=== PATIENT | male | born 1980 | race Caucasian/White ===

== ENCOUNTER 2025-08-11 15:17 | Emergency (ER) | payer BC, OTHER, SELFPAY ==
[2025-08-11 16:10] VITALS: BP 176/117; PULSE 88; RESP 14; O2SAT 98
--- NOTE | 2025-08-11 16:19 | ED.GENADULT ---
HPI - General Adult General Chief complaint: Skin/Abscess/Foreign Body Stated complaint: infection to right breast Time Seen by Provider: 08/11/25 16:20 Source: patient Mode of arrival: ambulatory Limitations: no limitations History of Present Illness HPI narrative: 45 years old white male drove himself to the emergency room with abscess like lesion at the right breast started 4 days ago, started probably as a pimple, ingrowing hair, squeezed, produced pus, then redness and tenderness spread. Patient denies any fever or chills, last time had blood workup years ago. He denies taking any medicine at home this time. Related Data Allergies Allergy/AdvReac Type Severity Reaction Status Date / Time No Known Allergies Allergy Verified 08/11/25 15:20 Review of Systems Review of Systems: All systems reviewed & are unremarkable except as noted in HPI and below Exam Narrative: General appearance: Well-developed, well-nourished Skin: Normal color, right breast showing extensive erythema 15 X 15 CM, warm to touch, severely tender, subcutaneous fluctuation 6 x 6 cm, NO DISCHARGE Head: Normocephalic, nontraumatic Eyes: Clear conjunctiva ENT: Oropharynx normal, ears normal, nose normal Neck: Supple, nontender Chest and respiratory: Airway patent, no respiratory distress, no accessory muscle use Heart: Regular rate/rhythm Abdomen: Soft, nontender, no organomegaly, quiet bowel sounds Musculoskeletal: Normal range of motion, nontender back Neurologic: Alert and oriented ?3, [employer] INS[employer]OR is normal as tested, no gross motor deficit Course Consultations Consultation #1: DR LEMONS ADMIT TO HOSPITALIST Date: 08/11/25 Time: 18:00 Vital Signs Vital signs: Vital Signs Pulse Rate 88 08/11/25 16:10 Respiratory Rate 14 08/11/25 16:10 Blood Pressure 176/117 H 08/11/25 16:10 Pulse Oximetry 98 08/11/25 16:10 Pulse Rate 88 08/11/25 16:10 Respiratory Rate 14 08/11/25 16:10 Blood Pressure 176/117 H 08/11/25 16:10 Pulse Oximetry 98 08/11/25 16:10 Medical Decision Making [facility] Narrative Medical decision making narrative: PATIENT CAME WITH ABSCESS LIKE LESION AT THE RIGHT BREAST VITAL SIGNS SHOWING BLOOD PRESSURE 176/117 OTHERWISE WITHIN NORMAL LIMIT PHYSICAL EXAMINATION SHOWING ABSCESS RIGHT BREAST 6 X 6 CM SURROUNDED BY ERYTHEMA 15 X 15 CM, DIFFUSELY TENDER, NO DISCHARGE. DIFFERENTIAL DIAGNOSIS RIGHT BREAST ABSCESS, POSSIBLE RIGHT BREAST CANCER WITH SUPERIMPOSED INFECTION. BLOOD WORKUP TODAY INCLUDES CBC CMP SHOWED NO SIGNIFICANT ABNORMALITY DR. LEMONS ACCEPTED PATIENT ADMISSION FOR INCISION AND DRAINAGE AND POSSIBLE BIOPSY TOMORROW MORNING. PATIENT DECLINED AND SIGNED AGAINST MEDICAL ADVICE I DECLARE THAT I HAVE PERSONALLY EXPLAINED TO THE PATIENT THE RISKS AND CONSEQUENCES INVOLVED IN LEAVING THIS FACILITY AT THIS TIME. THE BENEFITS OF CONTINUED TREATMENT AND/OR HOSPITALIZATION. AND THE ALTERNATIVES. IF ANY. TO CONTINUED TREATMENT AND/OR HOSPITALIZATION. IF APPLICABLE.I HAVE NOT IDENTIFIED ANY PSYCHOSIS, DRUGS, MENTAL ILLNESS, OR MEDICAL ILLNESS THAT ALTERS DECISION-MAKING CAPACITY (REASONING ABILITIES ). Differential Diagnosis Differential Diagnosis: ABOVE Vital Signs Vital Signs: Vital Signs Pulse Rate 88 08/11/25 16:10 Respiratory Rate 14 08/11/25 16:10 Blood Pressure 176/117 H 08/11/25 16:10 Pulse Oximetry 98 08/11/25 16:10 Pulse Rate 88 08/11/25 16:10 Respiratory Rate 14 08/11/25 16:10 Blood Pressure 176/117 H 08/11/25 16:10 Pulse Oximetry 98 08/11/25 16:10 Lab Data 08/11/25 17:13 08/11/25 17:13 Labs: Lab Results 08/11/25 Range/Units 17:13 WBC 9.4 (4.5-10.0) K/mm3 RBC 4.54 L (4.6-6.20) M/mm3 Hgb 13.0 L (14.0-18.0) g/dL Hct 40.2 L (42.0-52.0) % MCV 88.5 (80-100) fl MCH 28.6 (26-34) pg MCHC 32.3 (32-36) g/dl RDW 14.6 H (11.5-14.5) % Plt Count 221 (150-375) k/mm3 MPV 10.1 (7.4-10.4) fl Immature Gran % (Auto) 0.2 (0-0.5) % Neut % (Auto) 61.8 (45.5-73.1) % Lymph % (Auto) 25.9 (18.3-44.2) % Jackson % (Auto) 9.4 H (2.6-8.5) % Eos % (Auto) 2.5 (0-4.4) % Baso % (Auto) 0.2 (0.2-1.2) % Lymph # (Auto) 2.42 (0.9-3.2) K/mm3 Jackson # (Auto) 0.9 H (0.1-0.6) K/mm3 Eos # (Auto) 0.2 (0-0.3) K/mm3 Baso # (Auto) 0.0 (0.0-0.1) K/mm3 Abs Immat Gran (auto) 0.02 (0.00-0.031) K/mm3 Absolute Neuts (auto) 5.8 (1.3-6.7) K/mm3 Absolute Nucleated RBC 0.000 (0.0-0.012) K/mm3 Nucleated RBC % 0.0 (0.0-0.2) % Sodium 136 L (137-145) mmol/L Potassium 3.9 (3.4-5.0) mmol/L Chloride 103 (98-107) mmol/L Carbon Dioxide 27 (22-30) mmol/L Anion Gap 6 (4-12) mmol/L BUN 11 (9-20) mg/dL Creatinine 0.92 (0.7-1.3) mg/dL Estim Creat Clear Calc 88 ml/min Estimated GFR > 60 (59 - ) Glucose 92 (65-110) mg/dL Calcium 8.9 (8.4-10.2) mg/dL Total Bilirubin 0.4 (0.2-1.3) mg/dL AST 22 (17-59) U/L ALT 18 (6-50) U/L Alkaline Phosphatase 93 (38-126) U/L Total Protein 7.9 (6.3-8.2) g/dL Albumin 3.9 (3.5-5.1) g/dL Critical Care Time Critical Care Time Critical Care Time: No Discharge Plan Discharge Clinical Impression: Abscess of breast, right Patient Disposition: Home Condition: Stable Instructions: Antibiotic Form, Abscess (ED) Patient Language: Turkmen Prescriptions: New clindamycin HCl [Cleocin HCl] 150 mg capsule 450 mg PO Q8H 10 Days Qty: 90 0RF Follow-up/Referrals: PHYSICIAN NOT ON STAFF,NONSTAFF [Primary Care Provider]
[2025-08-11 17:23] LABS: Hematocrit 40.2 % (42.0-52.0); Hemoglobin 13.0 g/dL (14.0-18.0); Immature Granulocyte Percent A 0.2 % (0-0.5); Lymphocytes Absolute Auto 2.42 K/mm3 (0.9-3.2); Mean Corpuscular HGB Conc 32.3 g/dl (32-36); Mean Corpuscular Hemoglobin 28.6 pg (26-34); Mean Corpuscular Volume 88.5 fl (80-100); Nucleated Red Blood Cells Absolute Auto 0.000 K/mm3 (0.0-0.012); Nucleated Red Blood Cells Perc 0.0 % (0.0-0.2); Platelet Count Result 221 k/mm3 (150-375); Red Blood Count 4.54 M/mm3 (4.6-6.20); White Blood Count 9.4 K/mm3 (4.5-10.0)
[2025-08-11 17:39] LABS: Albumin Level 3.9 g/dL (3.5-5.1); Carbon Dioxide 27 mmol/L (22-30); Total Protein 7.9 g/dL (6.3-8.2)
[2025-08-11 17:47] LABS: Alanine Aminotransferase 18 U/L (6-50); Alkaline Phosphatase 93 U/L (38-126); Anion Gap 6 mmol/L (4-12); Aspartate Amino Transferase 22 U/L (17-59); Bilirubin,Total 0.4 mg/dL (0.2-1.3); Blood Urea Nitrogen 11 mg/dL (9-20); Calcium 8.9 mg/dL (8.4-10.2); Chloride 103 mmol/L (98-107); Estimated CRCL calculation 88 ml/min; Estimated Glomerular Filt Rate > 60; Glucose 92 mg/dL (65-110); Potassium 3.9 mmol/L (3.4-5.0); Sodium 136 mmol/L (137-145)
[2025-08-11] MEDS: CLINDAMYCIN HCL 150 MG CAP 450 MG PO (18:33)
== END 2025-08-11 18:44 | disposition left against medical advice (07) ==
PROVIDERS: Emergency Provider Emergency Medicine
DX: N61.1 Abscess of the breast and nipple (principal)
CPT/HCPCS: 36415; 80053; 85025; 99283